=== PATIENT | female | born 2000 | race African-American/Black ===

== ENCOUNTER 2024-03-22 23:19 | Emergency (ER) | payer BC ==
[~2024-03-22] VITALS: Ht 165.1 cm; Wt 90.8 kg
[2024-03-22 23:27] VITALS: BP 131/88; PULSE 82; RESP 18; O2SAT 97
[2024-03-23] MEDS ORDERED: TOPUD MT (01:31)
[2024-03-23 01:57] VITALS: TEMP 98.9
[2024-03-23] MEDS: METOCLOPRAMIDE HCL 10MG TABLET PO ONE (01:57)
[2024-03-23] MEDS: ACETAMINOPHEN 500MG TABLET PO ONE (01:57)
== END 2024-03-23 01:58 | disposition home or self-care (01) ==
LOC: ER 23:19
DX: O26.891 Other specified pregnancy related conditions, first trimester (principal); R51.9 Headache, unspecified; Z3A.10 10 weeks gestation of pregnancy; V49.49XA Driver injured in collision with other motor vehicles in traffic accident, initial encounter; Y93.89 Activity, other specified; Y92.89 Other specified places as the place of occurrence of the external cause; Y99.8 Other external cause status
CPT/HCPCS: 99284; 76801; 76817; J8597